=== PATIENT | male | born 1980 | race Caucasian/White ===

== ENCOUNTER 2018-11-20 23:47 | Emergency (ER) | payer SELFPAY ==
[2018-11-21 00:22] VITALS: BP 113/66; PULSE 63; TEMP 98.5; BMI 25.7
[2018-11-21] MEDS ORDERED: SODIUM CHLORIDE 1,000 ML IV STA (01:18)
[2018-11-21] MEDS ORDERED: ACETAMINOPHEN 1000 MG/100 ML VIAL (NON FORMULARY) IVPB ONE (01:18)
[2018-11-21] MEDS ORDERED: MECLIZINE HCL 25 MG TABLET (FP) PO ONE (01:18)
[2018-11-21] MEDS ORDERED: METOCLOPRAMIDE HCL INJECTION 10 MG/2 ML VIAL IVPB ONE (01:18)
[2018-11-21] MEDS ORDERED: ACETAMINOPHEN INJECTION 100 ML IVPB ONE (01:30)
[2018-11-21] MEDS ORDERED: METOCLOPRAMIDE HCL INJECTION 10 MG/2 ML VIAL ONE (01:30)
[2018-11-21] MEDS ORDERED: MECLIZINE HCL 25 MG TABLET (FP) ONE (01:30)
--- NOTE | 2018-11-21 01:56 | PDOC ---
History of Present Illness - General Chief Complaint: Lightheaded Stated Complaint: FALL DIZZINESS Time Seen by Provider: 11/21/18 01:00 History Source: Patient, Family Exam Limitations: No Limitations Past History - Past Medical History Allergies/Adverse Reactions: Allergies Allergy/AdvReac Type Severity Reaction Status Date / Time No Known Allergies Allergy Verified 11/21/18 00:21 Home Medications: Ambulatory Orders Meclizine HCl 25 mg PO Q6H PRN #20 tablet 11/21/18 COPD: No - Immunization History Immunization Up to Date: Yes - Suicide/Smoking/Psychosocial Hx Smoking History: Never smoked Have you smoked in the past 12 months: No Information on smoking cessation initiated: No Hx Alcohol Use: No Drug/Substance Use Hx: No *Physical Exam - Vital Signs Last Vital Signs Temp Pulse Resp BP Pulse Ox 98.5 F 63 20 113/66 98 11/21/18 00:00 11/21/18 00:00 11/21/18 00:00 11/21/18 00:00 11/21/18 00:00 - Physical Exam HEENT: positive: Other (no nystagmus noted but patient having to close his eyes when looking to the left) Respiratory/Chest: positive: Lungs Clear, Normal Breath Sounds. negative: Respiratory Distress Cardiovascular: positive: Regular Rhythm, Regular Rate, S1, S2. negative: Murmur Gastrointestinal/Abdominal: positive: Normal Bowel Sounds, Tender (mild along LLQ), Soft. 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, Fully Oriented, Alert, Normal Mood/ Affect, Motor Strength 11/02 ED Treatment Course - LABORATORY CBC & Chemistry Diagram: 11/21/18 01:46 11/21/18 01:46 - Medications Given in the ED: ED Medications Discontinued Medications Generic Name Dose Route Start Last Admin Trade Name Freq PRN Reason Stop Dose Admin Acetaminophen 1,000 mg 11/21/18 01:18 11/21/18 01:28 Ofirmev Injection - IVPB 11/21/18 01:19 1,000 mg ONCE ONE Administration Meclizine HCl 50 mg 11/21/18 01:18 11/21/18 01:28 Antivert - PO 11/21/18 01:19 50 mg ONCE ONE Administration Metoclopramide HCl 10 mg 11/21/18 01:18 11/21/18 01:28 Reglan Injection - IVPB 11/21/18 01:19 10 mg ONCE ONE Administration Medical Decision Making - Medical Decision Making 38 y/o M with no sig pmh presents with vertigo x 6 days. Six days ago, patient experienced vertigo and collapsed near the sofa and was seen in OSH. He was having some LLQ abdominal pain radiating to his back at that time as well. There he had blood work done and CT A/P which showed he had kidney stones ( unsure of size of stone). Patient was discharged without any medications. Patient then followed up at [address] [place] [address] four days ago where states only stool sample was taken. Patient states vertigo is worse with head movement, particularly when looking to the left. Today, patient collapsed at home again; per family, patient was feeling dizzy and his legs gave out; patient had LOC for <1 min per family. No head/neck trauma occurred. No seizure-like activity was noted. Denies fever, cough, n/v, sob, cp, bowel/bladder incontinence, visual changes. Possible BPPV; less likely stroke, ACS (patient without any risk factors) EKG: Sinus bradycardia at 49 bpm, no ST-T changes, no ectopy Plan: Labs, IVF, Tylenol, Reglan, Meclizine, reassess 11/21/18 01:56 Patient feeling better on reassessment Labs unremarkable Will refer to ENT 11/21/18 03:22 *DC/Admit/Observation/Transfer Diagnosis at time of Disposition: BPPV (benign paroxysmal positional vertigo) Qualifiers: Laterality: left Qualified Code(s): H81.12 - Benign paroxysmal vertigo, left ear - Discharge Dispostion Disposition: HOME Condition at time of disposition: Improved Decision to Admit order: No - Prescriptions Prescriptions: Meclizine HCl 25 mg PO Q6H PRN #20 tablet PRN Reason: dizziness - Referrals Referrals: Oswaldo Carter MD [Staff Physician] - 2 Days - Patient Instructions Printed Discharge Instructions: Benign Paroxysmal Positional Vertigo Additional Instructions: Thank you for choosing [facility]. It was a pleasure taking care of you. Likely your symptoms are from benign positional vertigo You were given Meclizine to take as needed for dizziness. This medication can make you drowsy. You were referred to ENT doctor for further evaluation Return to the Emergency Department if your symptoms worsen or persist, you have vomiting, weakness of extremities (arms and/or legs), changes in vision or walking or other concerning symptoms. Print Language: BURKINAN - Post Discharge Activity
[2018-11-21 02:19] LABS: BASO % 1.1 % (0-2.0); EOS % 1.9 % (0-4.5); HEMATOCRIT 40.6 % (35.4-49); HEMOGLOBIN 12.6 GM/dL (11.7-16.9); LYMPH % 28.8 % (8-40); MCH 20.1 pg (25.7-33.7); MEAN CELL VOLUME 64.8 fl (80-96); MEAN PLT VOLUME 8.8 fl (7.5-11.1); MONO % 9.1 % (3.8-10.2); NEUT % 59.1 % (42.8-82.8); PLATELET COUNT 260 K/MM3 (134-434); RBC 6.26 M/mm3 (4.00-5.60); RDW 15.5 % (11.9-15.9); WHITE BLOOD COUNT 5.8 K/mm3 (4.0-10.0)
[2018-11-21 02:56] LABS: ALBUMIN 3.9 g/dl (3.4-5.0); BILIRUBIN,TOTAL 0.5 mg/dL (0.2-1); CALCIUM 8.5 mg/dL (8.5-10.1); CREATININE 0.8 mg/dL (0.55-1.3); POTASSIUM 4.2 mmol/L (3.5-5.1); TOT PROT 6.8 g/dl (6.4-8.2)
--- NOTE | 2018-11-21 03:42 | PDOC ---
*Physical Exam - Vital Signs Last Vital Signs Temp Pulse Resp BP Pulse Ox 98.5 F 63 20 113/66 98 11/21/18 00:00 11/21/18 00:00 11/21/18 00:00 11/21/18 00:00 11/21/18 00:00 ED Treatment Course - LABORATORY CBC & Chemistry Diagram: 11/21/18 01:46 11/21/18 01:46 - ADDITIONAL ORDERS Additional order review: Laboratory Results 11/21/18 01:46 Sodium 136 Potassium 4.2 Chloride 103 Carbon Dioxide 27 Anion Gap 6 L BUN 19 H Creatinine 0.8 Est GFR (CKD-EPI)AfAm 130.42 Est GFR (CKD-EPI)NonAf 112.53 Random Glucose 90 Calcium 8.5 Total Bilirubin 0.5 AST 9 L ALT 16 Alkaline Phosphatase 102 Total Protein 6.8 Albumin 3.9 11/21/18 01:46 RBC 6.26 H MCV 64.8 L MCHC 31.0 L RDW 15.5 MPV 8.8 Neutrophils % 59.1 Lymphocytes % 28.8 Monocytes % 9.1 Eosinophils % 1.9 Basophils % 1.1 - Medications Given in the ED: ED Medications Discontinued Medications Generic Name Dose Route Start Last Admin Trade Name Freq PRN Reason Stop Dose Admin Acetaminophen 1,000 mg 11/21/18 01:18 11/21/18 01:28 Ofirmev Injection - IVPB 11/21/18 01:19 1,000 mg ONCE ONE Administration Sodium Chloride 1,000 mls @ 1,000 mls/hr 11/21/18 01:18 11/21/18 01:28 Normal Saline - IV 11/21/18 02:17 1,000 mls/hr ASDIR STA Administration Meclizine HCl 50 mg 11/21/18 01:18 11/21/18 01:28 Antivert - PO 11/21/18 01:19 50 mg ONCE ONE Administration Metoclopramide HCl 10 mg 11/21/18 01:18 11/21/18 01:28 Reglan Injection - IVPB 11/21/18 01:19 10 mg ONCE ONE Administration Medical Decision Making - Medical Decision Making 11/21/18 03:42 Case reviewed with STACY Rios Agree with assessment and plan *DC/Admit/Observation/Transfer Diagnosis at time of Disposition: BPPV (benign paroxysmal positional vertigo) Qualifiers: Laterality: left Qualified Code(s): H81.12 - Benign paroxysmal vertigo, left ear - Discharge Dispostion Disposition: HOME Condition at time of disposition: Improved - Prescriptions Prescriptions: Meclizine HCl 25 mg PO Q6H PRN #20 tablet PRN Reason: dizziness - Referrals Referrals: Oswaldo Carter MD [Staff Physician] - 2 Days - Patient Instructions Printed Discharge Instructions: Benign Paroxysmal Positional Vertigo Additional Instructions: Thank you for choosing [facility]. It was a pleasure taking care of you. Likely your symptoms are from benign positional vertigo You were given Meclizine to take as needed for dizziness. This medication can make you drowsy. You were referred to ENT doctor for further evaluation Return to the Emergency Department if your symptoms worsen or persist, you have vomiting, weakness of extremities (arms and/or legs), changes in vision or walking or other concerning symptoms. Print Language: KYRGYZ - Post Discharge Activity
[2018-11-21 04:12] LABS: ANISOCYTOSIS 2+
[2018-11-21 04:13] LABS: PLATELET ESTIMATE ADEQUATE
--- NOTE | 2018-11-21 13:32 | EKG ---
Test Reason : Blood Pressure : / mmHG Vent. Rate : 049 BPM Atrial Rate : 049 BPM P-R Int : 130 ms QRS Dur : 108 ms QT Int : 418 ms P-R-T Axes : 023 083 056 degrees QTc Int : 377 ms SINUS BRADYCARDIA NON-SPECIFIC INTRA-VENTRICULAR CONDUCTION DELAY NO PREVIOUS ECGS AVAILABLE Confirmed by NIKKI CROCKETT MD ([id number]) on 11/21/2018 1:32:23 PM Referred By: Confirmed By:NIKKI CROCKETT MD
== END 2018-11-21 03:32 | disposition home or self-care (01) ==
LOC: JER 23:47
PROC: 3E033GC Introduction of Other Therapeutic Substance into Peripheral Vein, Percutaneous Approach (ICD-10-PCS; principal; 2018-11-20)
PROC: 3E033NZ Introduction of Analgesics, Hypnotics, Sedatives into Peripheral Vein, Percutaneous Approach (ICD-10-PCS; 2018-11-20)
DX: H81.12 Benign paroxysmal vertigo, left ear (principal)
CPT/HCPCS: 36415; 80053; 85025; 93005; 93010; 99283-25; J0131; J7030

== ENCOUNTER 2021-10-26 07:16 | Emergency (ER) | payer OTHER ==
[2021-10-26 07:22] VITALS: BP 113/73; PULSE 57; TEMP 98; BMI 25.8
[2021-10-26] MEDS ORDERED: MECLIZINE HCL 25 MG TABLET (FP) PO ONE (07:57)
[2021-10-26] MEDS ORDERED: MECLIZINE HCL 25 MG TABLET (FP) ONE (08:19)
== END 2021-10-26 10:26 | disposition home or self-care (01) ==
LOC: JER 07:16
DX: R42 Dizziness and giddiness (principal); H91.93 Unspecified hearing loss, bilateral; H93.19 Tinnitus, unspecified ear
CPT/HCPCS: 99283-25